=== PATIENT | male | born 1970 | race Caucasian/White ===

== ENCOUNTER 2019-04-02 16:40 | Emergency (ER) | payer MEDICAID, OTHER ==
[~2019-04-02 16:40] MED LIST: HYDR-4353 PO; IBUP-1984 PO
== END 2019-04-02 18:59 | disposition left against medical advice (07) ==
LOC: ER 16:41
DX: R22.40 Localized swelling, mass and lump, unspecified lower limb (principal); Z53.21 Procedure and treatment not carried out due to patient leaving prior to being seen by health care provider

== ENCOUNTER 2019-05-28 03:43 | Emergency (ER) | payer MEDICAID ==
[~2019-05-28] VITALS: Ht 177.8 cm; Wt 80.0 kg
[2019-05-28 03:46] VITALS: BP 160/102
[2019-05-28] MEDS ORDERED: acetaminophen 325mg tablet PO ONE (04:05)
== END 2019-05-28 04:22 | disposition home or self-care (01) ==
LOC: ER 03:44
DX: S29.011A Strain of muscle and tendon of front wall of thorax, initial encounter (principal); F15.90 Other stimulant use, unspecified, uncomplicated; M79.604 Pain in right leg; Z79.899 Other long term (current) drug therapy; Z59.0 Homelessness; Z56.0 Unemployment, unspecified; W18.39XA Other fall on same level, initial encounter; Y93.89 Activity, other specified; Y92.89 Other specified places as the place of occurrence of the external cause; Y99.8 Other external cause status
CPT/HCPCS: 99282

== ENCOUNTER 2019-10-23 02:41 | Emergency (ER) | payer MEDICAID ==
[~2019-10-23] VITALS: Ht 177.8 cm; Wt 86.3 kg
[2019-10-23] MEDS ORDERED: ibuprofen 200mg tablet PO ONE (03:05)
[2019-10-23 03:17] VITALS: BP 152/98
== END 2019-10-23 03:20 | disposition home or self-care (01) ==
LOC: ER 02:42
DX: M25.551 Pain in right hip (principal); Z60.2 Problems related to living alone; Z59.0 Homelessness; Z56.0 Unemployment, unspecified; Z79.899 Other long term (current) drug therapy
CPT/HCPCS: 99282

== ENCOUNTER 2019-12-04 10:06 | Emergency (ER) | payer MEDICAID ==
[~2019-12-04] VITALS: Ht 177.8 cm; Wt 90.0 kg
[2019-12-04] MEDS ORDERED: ketorolac trometh. 30mg/ml inj. IM ONE (11:35)
[2019-12-04] MEDS ORDERED: oxyCODONE/APAP 5-325mg tablet PO ONE (11:35)
[2019-12-04] MEDS ORDERED: HYDR-3965 PO (12:12)
[2019-12-04 12:43] VITALS: BP 108/70
== END 2019-12-04 12:46 | disposition home or self-care (01) ==
LOC: ER 10:07
DX: S82.831A Other fracture of upper and lower end of right fibula, initial encounter for closed fracture (principal); Z79.899 Other long term (current) drug therapy; Z60.2 Problems related to living alone; Z59.0 Homelessness; Z56.0 Unemployment, unspecified; X50.1XXA Overexertion from prolonged static or awkward postures, initial encounter; Y93.01 Activity, walking, marching and hiking; Y92.89 Other specified places as the place of occurrence of the external cause; Y99.8 Other external cause status
CPT/HCPCS: 29515; 73590; 73610; 73630; 96372; 99284; J1885

== ENCOUNTER 2019-12-15 16:37 | Emergency (ER) | payer MEDICAID ==
[~2019-12-15] VITALS: Ht 177.8 cm; Wt 88.6 kg
[2019-12-15 17:15] VITALS: BP 137/91
== END 2019-12-15 18:52 | disposition left against medical advice (07) ==
LOC: ER 16:38
DX: M54.5 Low back pain (principal); Z53.21 Procedure and treatment not carried out due to patient leaving prior to being seen by health care provider

== ENCOUNTER 2020-02-05 10:30 | Emergency (ER) | payer MEDICAID ==
[~2020-02-05] VITALS: Ht 182.9 cm; Wt 88.2 kg
[2020-02-05 10:37] VITALS: BP 139/85
[2020-02-05] MEDS ORDERED: ibuprofen tablet 400 MG TABLET PO ONE (10:45)
[2020-02-05] MEDS ORDERED: IBUP-1984 PO (11:18)
[2020-02-05] MEDS ORDERED: FEXO1TAB5 PO (11:18)
[2020-02-05] MEDS ORDERED: AMOX-422 PO (11:18)
== END 2020-02-05 11:41 | disposition home or self-care (01) ==
LOC: ER 10:30
DX: M25.571 Pain in right ankle and joints of right foot (principal); J32.9 Chronic sinusitis, unspecified; F17.200 Nicotine dependence, unspecified, uncomplicated; Z60.2 Problems related to living alone; Z59.0 Homelessness; Z56.0 Unemployment, unspecified; Z79.899 Other long term (current) drug therapy
CPT/HCPCS: 73610; 99283

== ENCOUNTER 2020-03-03 22:49 | Emergency (ER) | payer MEDICAID ==
[~2020-03-03] VITALS: Ht 177.8 cm; Wt 190.0 kg
[~2020-03-03 22:49] MED LIST changes: +FEXO1TAB5 PO
[2020-03-03] MEDS ORDERED: gabapentin 400mg capsule PO STA (22:54)
[2020-03-03] MEDS ORDERED: ketorolac trometh inj. 60 MG/2 ML VIAL IM ONE (22:55)
[2020-03-03] MEDS ORDERED: acetaminophen 325mg tablet PO ONE (23:20)
[2020-03-03] MEDS ORDERED: HYDROcodone/acetaminophen 10/325mg tab PO ONE (23:50)
[2020-03-04 00:39] VITALS: BP 117/66
--- NOTE | 2020-03-04 01:07 | NUR ---
PT WAS PROVIDED CRUTCHES TO ASSIST AMBULATION.
== END 2020-03-04 01:14 | disposition home or self-care (01) ==
LOC: ER 22:49
DX: M79.671 Pain in right foot (principal); G62.9 Polyneuropathy, unspecified; F17.200 Nicotine dependence, unspecified, uncomplicated; F15.90 Other stimulant use, unspecified, uncomplicated; Z60.2 Problems related to living alone; Z59.0 Homelessness; Z56.0 Unemployment, unspecified; Z79.899 Other long term (current) drug therapy
CPT/HCPCS: 99284

== ENCOUNTER 2020-05-06 11:14 | Emergency (ER) | payer MEDICAID ==
[~2020-05-06] VITALS: Ht 177.8 cm; Wt 72.0 kg
[2020-05-06] MEDS ORDERED: CEPH500C5 PO (12:34)
[2020-05-06] MEDS ORDERED: LACT1CAP60 PO (12:34)
[2020-05-06] MEDS ORDERED: SULF1TAB49 PO (12:34)
[2020-05-06 12:55] LABS: BASOPHILS # (AUTO) 0.1 X10'3 (0-0.2); BASOPHILS % (AUTO) 0.6 % (0-1); EOSINOPHILS # (AUTO) 0.2 X10'3 (0-0.9); HEMATOCRIT 37.8 % (42.0-52.0); HEMOGLOBIN 12.5 g/dl (14.0-17.9); LYMPHOCYTES # (AUTO) 2.7 X10'3 (1.1-4.8); LYMPHOCYTES % (AUTO) 28.4 % (21-51); MEAN CORPUSCULAR HEMOGLOBIN 28.6 PG (27.0-31.0); MEAN CORPUSCULAR VOLUME 86.7 FL (78-98); MEAN PLATELET VOLUME 8.2 FL (7.4-10.4); MONOCYTES # (AUTO) 0.7 X10'3 (0-0.9); NEUTROPHILS # (AUTO) 5.7 X10'3 (1.8-7.7); PLATELET COUNT 258 X10'3 (140-440); RED BLOOD COUNT 4.36 X10'6 (4.70-6.10); RED CELL DISTRIBUTION WIDTH 13.2 % (11.5-14.5); WHITE BLOOD COUNT 9.4 X10'3 (4.5-11.0)
[2020-05-06 13:05] LABS: ALANINE AMINOTRANSFERASE 29 U/L (12-78); ALBUMIN 2.9 G/DL (3.4-5.0); ALBUMIN/GLOBULIN RATIO 0.8 (1.1-1.5); ALKALINE PHOSPHATASE 106 IU/L (46-116); ANION GAP 5 (8-16); ASPARTATE AMINO TRANSFERASE 26 U/L (10-37); BILIRUBIN,TOTAL 0.1 MG/DL (0.1-1.0); BLOOD UREA NITROGEN 10 MG/DL (7-18); BUN/CREATININE RATIO 8.7 (5.4-32.0); CALCIUM 8.5 MG/DL (8.5-10.1); CHLORIDE 103 MMOL/L (99-107); CREATININE 1.15 MG/DL (0.60-1.10); ETHANOL < 0.010 GM/DL (0.0-0.010); GLUCOSE 90 MG/DL (70-104); POTASSIUM 3.4 MMOL/L (3.5-5.1); SODIUM 139 MMOL/L (135-145); TOTAL CARBON DIOXIDE 31.2 MMOL/L (24-32); TOTAL PROTEIN 6.4 G/DL (6.4-8.2); eGFR 68 ML/MIN
--- NOTE | 2020-05-06 13:28 | NUR ---
pt states "I just pee'd, I don't have anymore." He is refusing to be straight catheterized @ this time. CLAY Rankin notified.
--- NOTE | 2020-05-06 13:43 | NUR ---
Pt gave verbal permission to update friend Radha Jimenez ([phone]) on his status. Radha's information mirrored what pt had already shared with the exception that she was helping pt seek rehab for meth abuse.
[2020-05-06] MEDS ORDERED: LORazepam 2 mg/ml vial IV ONE (13:45)
[2020-05-06] MEDS ORDERED: ketorolac trometh. 30mg/ml inj. IV ONE (13:45)
[2020-05-06] MEDS ORDERED: normal saline 1000ML IV soln IVB ONE (13:45)
[2020-05-06] MEDS ORDERED: CefTRIAXone/D5W-Rocephin 1gm 50 ML IV ONE (13:50)
--- NOTE | 2020-05-06 14:15 | NUR ---
pt iv unable to flush, pt stated he clotts very fast. attempted one additional iv start. pt screamed and pulled arm upon insertion of iv. asked if he can have another ultrasound iv.
[2020-05-06 15:29] VITALS: BP 138/83
== END 2020-05-06 15:30 | disposition home or self-care (01) ==
LOC: ER 11:15
DX: S06.9X9A Unspecified intracranial injury with loss of consciousness of unspecified duration, initial encounter (principal); L02.416 Cutaneous abscess of left lower limb; L02.413 Cutaneous abscess of right upper limb; H11.31 Conjunctival hemorrhage, right eye; R51 Headache; M54.5 Low back pain; H53.8 Other visual disturbances; W51.XXXA Accidental striking against or bumped into by another person, initial encounter; Y93.89 Activity, other specified; Y92.89 Other specified places as the place of occurrence of the external cause; Y99.8 Other external cause status
CPT/HCPCS: 36415; 70450; 70486; 80053; 80320; 83605; 84145; 85025; 96365; 96375; 99285; J0696; J1885; J2060; J7030

== ENCOUNTER 2020-06-12 13:11 | Emergency (ER) | payer MEDICAID ==
[~2020-06-12] VITALS: Ht 177.8 cm; Wt 99.5 kg
[~2020-06-12 13:11] MED LIST changes: +LACT1CAP60 PO
[2020-06-12 13:19] VITALS: BP 134/83
[2020-06-12] MEDS ORDERED: AMOX-422 PO (13:45)
[2020-06-12] MEDS ORDERED: METR-159 PO (13:45)
[2020-06-12] MEDS ORDERED: LACT1CAP60 PO (13:48)
[2020-06-12] MEDS ORDERED: HYDROcodone/acetaminophen 5mg/325mg tablet PO ONE (13:55)
== END 2020-06-12 13:59 | disposition home or self-care (01) ==
LOC: ER 13:12
DX: K02.9 Dental caries, unspecified (principal); K08.89 Other specified disorders of teeth and supporting structures; R51 Headache; R22.0 Localized swelling, mass and lump, head; F15.90 Other stimulant use, unspecified, uncomplicated; Z60.2 Problems related to living alone; Z56.0 Unemployment, unspecified; Z59.0 Homelessness; Z79.2 Long term (current) use of antibiotics; Z79.899 Other long term (current) drug therapy
CPT/HCPCS: 99283

== ENCOUNTER 2020-08-15 09:25 | Emergency (ER) | payer MEDICAID ==
[~2020-08-15] VITALS: Ht 177.8 cm; Wt 113.6 kg
[2020-08-15 09:42] VITALS: BP 138/91
[2020-08-15] MEDS ORDERED: AZIT250T83 PO (10:29)
[2020-08-15] MEDS ORDERED: ALBU8.5H8 INH (10:29)
[2020-08-15] MEDS ORDERED: FLUT16SP2 BOTHNARES (10:29)
[2020-08-15] MEDS ORDERED: PRED20TA PO (10:29)
[2020-08-15] MEDS ORDERED: BENZ-16 PO (10:29)
== END 2020-08-15 11:00 | disposition home or self-care (01) ==
LOC: ER 09:25
DX: J20.9 Acute bronchitis, unspecified (principal); G62.9 Polyneuropathy, unspecified; F17.210 Nicotine dependence, cigarettes, uncomplicated; F15.10 Other stimulant abuse, uncomplicated; Z79.899 Other long term (current) drug therapy; Z87.311 Personal history of (healed) other pathological fracture; Z56.0 Unemployment, unspecified; Z59.0 Homelessness
CPT/HCPCS: 36415; 71045; 87635; 99284

== ENCOUNTER 2020-09-12 00:19 | Emergency (ER) | payer MEDICAID ==
[~2020-09-12] VITALS: Ht 177.8 cm; Wt 109.1 kg
[~2020-09-12 00:19] MED LIST changes: +ALBU8.5H8 INH; +BENZ-16 PO; +FLUT16SP2 BOTHNARES; +PRED20TA PO
[2020-09-12 00:22] VITALS: BP 123/78
[2020-09-12] MEDS ORDERED: normal saline 1000ML IV soln IVB ONE (00:30)
[2020-09-12 01:10] LABS: URINE AMPHETAMINE SCREEN NEGATIVE (Neg); URINE BARBITUATE SCREEN NEGATIVE (Neg); URINE BENZODIAZEPINES SCREEN NEGATIVE (Neg); URINE CANNABINOID SCREEN NEGATIVE (Neg); URINE COCAINE SCREEN NEGATIVE (Neg); URINE METHADONE SCREEN NEGATIVE (Neg); URINE OPIATE SCREEN NEGATIVE (Neg); URINE PHENCYCLIDINE SCREEN NEGATIVE (Neg)
== END 2020-09-12 01:18 | disposition home or self-care (01) ==
LOC: ER 00:19
DX: F10.920 Alcohol use, unspecified with intoxication, uncomplicated (principal); Y90.9 Presence of alcohol in blood, level not specified; J20.9 Acute bronchitis, unspecified; Z59.0 Homelessness; Z56.0 Unemployment, unspecified; Z79.899 Other long term (current) drug therapy
CPT/HCPCS: 36415; 80305; 93005; 99284

== ENCOUNTER 2020-09-23 18:48 | Emergency (ER) | payer MEDICAID ==
[~2020-09-23] VITALS: Ht 177.8 cm; Wt 108.4 kg
[~2020-09-23 18:48] MED LIST changes: -BENZ-16 PO; -PRED20TA PO
[2020-09-23 19:57] LABS: BASOPHILS # (AUTO) 0.1 X10'3 (0-0.2); BASOPHILS % (AUTO) 1.1 % (0-1); EOSINOPHILS # (AUTO) 0.3 X10'3 (0-0.9); EOSINOPHILS % (AUTO) 2.9 % (0-6); HEMATOCRIT 46.2 % (42.0-52.0); HEMOGLOBIN 15.7 g/dl (14.0-17.9); LYMPHOCYTES # (AUTO) 2.5 X10'3 (1.1-4.8); LYMPHOCYTES % (AUTO) 28.1 % (21-51); MEAN CORPUSCULAR HEMOGLOBIN 30.2 PG (27.0-31.0); MEAN PLATELET VOLUME 8.3 FL (7.4-10.4); NEUTROPHILS # (AUTO) 5.2 X10'3 (1.8-7.7); NEUTROPHILS % (AUTO) 56.9 % (42-75); PLATELET COUNT 196 X10'3 (140-440); RED CELL DISTRIBUTION WIDTH 13.8 % (11.5-14.5); WHITE BLOOD COUNT 9.1 X10'3 (4.5-11.0)
[2020-09-23 20:14] LABS: ALANINE AMINOTRANSFERASE 66 U/L (12-78); ALBUMIN 3.7 G/DL (3.4-5.0); ALBUMIN/GLOBULIN RATIO 0.9 (1.1-1.5); ALKALINE PHOSPHATASE 94 IU/L (46-116); ANION GAP 11 (8-16); ASPARTATE AMINO TRANSFERASE 36 U/L (10-37); BILIRUBIN,TOTAL 0.3 MG/DL (0.1-1.0); BLOOD UREA NITROGEN 10 MG/DL (7-18); CALCIUM 9.9 MG/DL (8.5-10.1); CHLORIDE 103 MMOL/L (99-107); CREATININE 1.11 MG/DL (0.60-1.10); GLUCOSE 101 MG/DL (70-104); LIPASE < 50 U/L (73-393); POTASSIUM 4.1 MMOL/L (3.5-5.1); SODIUM 140 MMOL/L (135-145); TOTAL CARBON DIOXIDE 26.4 MMOL/L (24-32); eGFR 71 ML/MIN
[2020-09-23 21:11] LABS: CLARITY,URINE CLEAR (Clear); COLOR,URINE YELLOW (Yellow); GLUCOSE, URINE NEGATIVE (Neg); KETONES,URINE NEGATIVE (Neg); LEUKOCYTE ESTERASE ,URINE SMALL (Neg); NITRITES, URINE NEGATIVE (Neg); OCCULT BLOOD,URINE MODERATE (Neg); PH,URINE 5.5 (4.8-8.0); PROTEIN,URINE NEGATIVE (Neg); UA COLLECTION TYPE CLN CATCH MIDSTREAM; UROBILINOGEN,URINE 0.2 E.U/dL (0.2-1.0)
[2020-09-23 21:18] LABS: SQUAMOUS EPITHELIAL CELL,UR FEW /LPF (FEW)
[2020-09-23 21:19] LABS: BACTERIA,URINE 1+ /HPF (Neg); RBC,URINE 50-100 /HPF (0-2); TRANSITIONAL EPI CELLS,URINE FEW /HPF
[2020-09-23] MEDS ORDERED: HYDROcodone/acetaminophen 5mg/325mg tablet PO ONE (21:20)
[2020-09-23 23:03] VITALS: BP 126/50
[2020-09-23] MEDS ORDERED: HYDR-4353 PO (23:19)
--- NOTE | 2020-09-24 10:59 | NUR ---
I CALLED PT PT IS REFUSING RX OF [employer].
== END 2020-09-23 23:29 | disposition home or self-care (01) ==
LOC: ER 18:49
DX: N20.0 Calculus of kidney (principal); N13.30 Unspecified hydronephrosis; G62.9 Polyneuropathy, unspecified; J40 Bronchitis, not specified as acute or chronic; Z56.0 Unemployment, unspecified; Z59.0 Homelessness; Z79.899 Other long term (current) drug therapy
CPT/HCPCS: 36415; 74176; 80053; 81001; 83690; 85025; 87088; 99284

== ENCOUNTER 2020-09-29 07:49 | Emergency (ER) | payer MEDICAID ==
[~2020-09-29] VITALS: Ht 177.8 cm; Wt 109.1 kg
[2020-09-29] MEDS ORDERED: NAPR-56 PO (08:38)
== END 2020-09-29 08:54 | disposition home or self-care (01) ==
LOC: ER 07:49
DX: R05 Cough (principal); Z20.828 Contact with and (suspected) exposure to other viral communicable diseases; Z60.2 Problems related to living alone; Z56.0 Unemployment, unspecified; Z59.0 Homelessness; Z79.899 Other long term (current) drug therapy
CPT/HCPCS: 36415; 87635; 99283

== ENCOUNTER 2020-10-14 10:24 | Emergency (ER) | payer MEDICAID ==
[~2020-10-14] VITALS: Ht 177.8 cm; Wt 106.8 kg
[~2020-10-14 10:24] MED LIST changes: +NAPR-56 PO
[2020-10-14 10:38] VITALS: BP 156/90
[2020-10-14] MEDS ORDERED: PENI250T2 PO (11:13)
[2020-10-14] MEDS ORDERED: GUAI600T45 PO (11:13)
== END 2020-10-14 11:22 | disposition home or self-care (01) ==
LOC: ER 10:25
DX: K04.7 Periapical abscess without sinus (principal); R09.89 Other specified symptoms and signs involving the circulatory and respiratory systems; Z60.2 Problems related to living alone; Z59.0 Homelessness; Z56.0 Unemployment, unspecified; Z79.2 Long term (current) use of antibiotics; Z79.899 Other long term (current) drug therapy
CPT/HCPCS: 99283

== ENCOUNTER 2020-10-23 13:15 | Emergency (ER) | payer MEDICAID ==
[~2020-10-23 13:15] MED LIST changes: +GUAI600T45 PO; +PENI250T2 PO
== END 2020-10-23 14:59 | disposition left against medical advice (07) ==
LOC: ER 13:16
DX: M54.2 Cervicalgia (principal); Z53.21 Procedure and treatment not carried out due to patient leaving prior to being seen by health care provider

== ENCOUNTER 2020-11-15 15:42 | Emergency (ER) | payer MEDICAID ==
[~2020-11-15] VITALS: Ht 177.8 cm; Wt 109.1 kg
[~2020-11-15 15:42] MED LIST changes: -PENI250T2 PO
[2020-11-15 15:49] VITALS: BP 158/86
[2020-11-15] MEDS ORDERED: amoxicillin 250mg capsule PO ONE (16:10)
[2020-11-15] MEDS ORDERED: naproxen 500mg tablet PO ONE (16:10)
[2020-11-15] MEDS ORDERED: AMOX500C2 PO (16:12)
[2020-11-15] MEDS ORDERED: NAPR-56 PO (16:12)
== END 2020-11-15 16:46 | disposition home or self-care (01) ==
LOC: ER 15:42
DX: K04.7 Periapical abscess without sinus (principal); G62.9 Polyneuropathy, unspecified; Z87.81 Personal history of (healed) traumatic fracture; Z56.0 Unemployment, unspecified; Z59.0 Homelessness; Z79.2 Long term (current) use of antibiotics; Z79.899 Other long term (current) drug therapy
CPT/HCPCS: 99283

== ENCOUNTER 2021-06-11 21:00 | Inpatient (IN) | payer MEDICAID ==
[~2021-06-11] VITALS: Ht 172.7 cm; Wt 125.0 kg
[~2021-06-11 21:00] MED LIST changes: +ALBU8.5H17 INH; -ALBU8.5H8 INH
[2021-06-11] MEDS ORDERED: LORazepam 2 mg/ml vial IM ONE (21:25)
[2021-06-11] MEDS ORDERED: diphenhydrAMINE 50 mg/ml inj IM ONE (21:25)
--- NOTE | 2021-06-11 22:04 | NUR ---
The patient is a 50 year old male who was brought in by D after he was at someones home and was confused and disorganized. When the officer interviewed him he was discribed as "catatonic" He was unable to identify a plan for food, prison or clothing. He presented as very disorganized and unable to follow simple commands. He was confused and unable to give a medical history, med history or complete the [place] Suicide Scale. His mouth was very dry and was asking for water but then spit it out. His replies are not mumbled and at times do not match what was asked.
[2021-06-11] MEDS ORDERED: normal saline 1000ml 1,000 ML IV ONE (22:50)
[2021-06-11 23:07] LABS: BASOPHILS # (AUTO) 0.1 X10'3 (0-0.2); BASOPHILS % (AUTO) 0.3 % (0-1); EOSINOPHILS % (AUTO) 0 % (0-6); HEMOGLOBIN 16.6 g/dl (14.0-17.9); LYMPHOCYTES # (AUTO) 1.1 X10'3 (1.1-4.8); MEAN CORPUSCULAR HEMOGLOBIN 29.3 PG (27.0-31.0); MEAN CORPUSCULAR HGB CONC 33.2 g/dL (33.0-36.5); MEAN CORPUSCULAR VOLUME 88.2 FL (78-98); MEAN PLATELET VOLUME 8.7 FL (7.4-10.4); MONOCYTES # (AUTO) 1.3 X10'3 (0-0.9); MONOCYTES % (AUTO) 6.8 % (2-12); NEUTROPHILS # (AUTO) 16.2 X10'3 (1.8-7.7); NEUTROPHILS % (AUTO) 86.9 % (42-75); PLATELET COUNT 295 X10'3 (140-440); RED BLOOD COUNT 5.67 X10'6 (4.70-6.10); RED CELL DISTRIBUTION WIDTH 13.9 % (11.5-14.5); WHITE BLOOD COUNT 18.7 X10'3 (4.5-11.0)
--- NOTE | 2021-06-11 23:16 | NUR ---
The patient appears very confused. He is asking for water but then spitting it out. His mouth appears very dry. PA made aware of apparent delirium type symptoms. Orders received.
[2021-06-11 23:23] LABS: ALANINE AMINOTRANSFERASE 115 U/L (12-78); ALBUMIN 4.5 G/DL (3.4-5.0); ALKALINE PHOSPHATASE 115 IU/L (46-116); ANION GAP 17 (8-16); ASPARTATE AMINO TRANSFERASE 70 U/L (10-37); BILIRUBIN,TOTAL 0.7 MG/DL (0.1-1.0); BLOOD UREA NITROGEN 28 MG/DL (7-18); CALCIUM 9.9 MG/DL (8.5-10.1); CHLORIDE 114 MMOL/L (99-107); CREATININE 2.34 MG/DL (0.60-1.10); GLUCOSE 139 MG/DL (70-104); POTASSIUM 3.8 MMOL/L (3.5-5.1); TOTAL CARBON DIOXIDE 24.4 MMOL/L (24-32); TOTAL PROTEIN 9.1 G/DL (6.4-8.2); eGFR 30 ML/MIN
[2021-06-11 23:33] LABS: ETHANOL < 0.010 GM/DL (0.0-0.010)
[2021-06-11 23:39] LABS: SODIUM 155 MMOL/L (135-145)
--- NOTE | 2021-06-11 23:40 | NUR ---
Critical lab values of NA 155 and CL of 114 reported to Daylin WILLIAMSON
[2021-06-12] MEDS ORDERED: BUS15T PO (00:36)
[2021-06-12] MEDS ORDERED: MIRT-116 PO (00:36)
[2021-06-12] MEDS ORDERED: BUPR300T53 PO (00:36)
[2021-06-12] MEDS ORDERED: potassium Cl 20 mEq SR tablet PO PRN ×2 (01:55)
[2021-06-12] MEDS ORDERED: magnesium Cl slow-release 64mg tablet PO PRN (01:55)
[2021-06-12] MEDS ORDERED: magnesium 4gm in 100ml NS 100 ML IV PRN (01:55)
[2021-06-12] MEDS ORDERED: acetaminophen 325mg tablet PO PRN ×2 (01:55)
[2021-06-12] MEDS ORDERED: magnesium 2GM in 50ml NS 50 ML IV PRN (01:55)
[2021-06-12] MEDS ORDERED: ondansetron/PF 4mg/2ml inj IV PRN (01:55)
[2021-06-12] MEDS ORDERED: potassium Cl 40MEQ/1/2NS 520ml 520 ML IV PRN ×2 (01:55)
[2021-06-12] MEDS ORDERED: vancomycin/NS 1 GM ADD-VANTAGE 250 ML IV SCH (02:30)
[2021-06-12] MEDS: dextrose 5%-1/2 normal saline 1,000 ML IV SCH ×4 (02:43→20:55)
--- NOTE | 2021-06-12 02:47 | NUR ---
The patient pulled out his IV that was in his right upper arm that was obtained by [facility]. New PIV in his left upper arm. The patient is going to be admitted per Dr. Hernandez. IV fluids started. He remains confused. He has one to one staffing 2nd to his confused state.
--- NOTE | 2021-06-12 03:28 | NUR ---
The patient appears to be sleeping
--- NOTE | 2021-06-12 05:03 | NUR ---
The patient appears to be sleeping at this time.
[2021-06-12 06:15] LABS: CLARITY,URINE SLIGHTLY CLOUDY (Clear); COLOR,URINE YELLOW (Yellow); GLUCOSE, URINE NEGATIVE (Neg); KETONES,URINE TRACE mg/dl (Neg); LEUKOCYTE ESTERASE ,URINE TRACE (Neg); NITRITES, URINE NEGATIVE (Neg); OCCULT BLOOD,URINE SMALL (Neg); PROTEIN,URINE TRACE mg/dl (Neg)
[2021-06-12 06:22] LABS: UA COLLECTION TYPE VOIDED
[2021-06-12 06:26] LABS: MUCUS STRANDS FEW /LPF (Neg); SQUAMOUS EPITHELIAL CELL,UR FEW /LPF (FEW); URINE AMPHETAMINE SCREEN POSITIVE (Neg); URINE BARBITUATE SCREEN NEGATIVE (Neg); URINE BENZODIAZEPINES SCREEN NEGATIVE (Neg); URINE CANNABINOID SCREEN NEGATIVE (Neg); URINE COCAINE SCREEN NEGATIVE (Neg); URINE METHADONE SCREEN NEGATIVE (Neg); URINE OPIATE SCREEN NEGATIVE (Neg); URINE PHENCYCLIDINE SCREEN NEGATIVE (Neg)
[2021-06-12 06:28] LABS: BACTERIA,URINE FEW /HPF (Neg); CAL OXALATE CRYSTALS 1+ /HPF (NEGATIVE); RBC,URINE 20-50 /HPF (0-2)
[2021-06-12 06:29] LABS: RENAL CELLS, URINE FEW /HPF
[2021-06-12 06:30] LABS: HYALINE CASTS 0-3 /LPF (NEGATIVE)
[2021-06-12] MEDS: CefTRIAXone 2gm/D5W 50ml BAG 50 ML IV SCH (08:17)
[2021-06-12] MEDS: heparin, porcine 5000 units/ml vial SQ SCH ×2 (08:36→20:55)
--- NOTE | 2021-06-12 08:45 | NUR ---
Pt woke and used bathroom. Pt moved to bed 24 in ER overflow. Pt received AM meds and remains sleeping in bed with IV of D5 1/2 NS @ 150ml/hr.
[2021-06-12] MEDS: K and/or MAG REPLACEMENT MC SCH ×2 (08:55→20:00)
--- NOTE | 2021-06-12 10:00 | NUR ---
Received Pt in bed sleeping w/o distress. Pt has IV intact and running.
[2021-06-12] MEDS ORDERED: LORazepam 2 mg/ml vial IV PRN (13:00)
--- NOTE | 2021-06-12 13:30 | NUR ---
Pt was up to bathroom earlier and urinated. Pt returned to bed and drank some water then fell asleep. New bag 1000ml of D5, 1/2 NS started.
[2021-06-12] MEDS: vancomycin/NS 1 GM ADD-VANTAGE 250 ML IV SCH (15:11)
--- NOTE | 2021-06-12 17:22 | NUR ---
Pt in bed sleeping in no distress. IV Vanco administered and D5 1/2 NS running at 150 ml/hr. Pt woke earlier and drank water.
--- NOTE | 2021-06-12 20:00 | NUR ---
The patient appears to be sleeping. He did awaken briefly and requested assistance with using the bathroom.
[2021-06-12] MEDS: mirtazapine 15mg tablet PO SCH (20:55)
[2021-06-12] MEDS: busPIRone 15mg tablet PO SCH (20:55)
--- NOTE | 2021-06-12 21:51 | NUR ---
The patient has continued to sleep. He was awakened for HS medications and asked how he got to be in the hospital and the circumstances of why he was here was relayed to him.
--- NOTE | 2021-06-12 23:30 | NUR ---
Request made to cupola charger insulation to move patient to medical side of ER for monitoring
--- NOTE | 2021-06-12 23:32 | NUR ---
The patient appears to be sleeping
--- NOTE | 2021-06-13 01:06 | NUR ---
The patient appears to be sleeping
[2021-06-13] MEDS: dextrose 5%-1/2 normal saline 1,000 ML IV SCH (02:31)
[2021-06-13] MEDS: vancomycin/NS 1 GM ADD-VANTAGE 250 ML IV SCH (02:31)
--- NOTE | 2021-06-13 03:01 | NUR ---
The patient awakened for labs. He is still confused and forgetful as to how he came to be in the ER. But his throught process is much clearer and he now can answer simple questions appropriately. He is sleeping well between nursing interventions.
[2021-06-13 03:34] LABS: ALANINE AMINOTRANSFERASE 100 U/L (12-78); ALBUMIN 2.9 G/DL (3.4-5.0); ALBUMIN/GLOBULIN RATIO 0.9 (1.1-1.5); ALKALINE PHOSPHATASE 82 IU/L (46-116); ANION GAP 11 (8-16); ASPARTATE AMINO TRANSFERASE 111 U/L (10-37); BILIRUBIN,TOTAL 0.8 MG/DL (0.1-1.0); BLOOD UREA NITROGEN 15 MG/DL (7-18); BUN/CREATININE RATIO 12.6 (5.4-32.0); CALCIUM 7.2 MG/DL (8.5-10.1); CHLORIDE 110 MMOL/L (99-107); CREATININE 1.19 MG/DL (0.60-1.10); GLUCOSE 100 MG/DL (70-104); MAGNESIUM 2.4 MG/DL (1.5-2.4); POTASSIUM 3.9 MMOL/L (3.5-5.1); SODIUM 146 MMOL/L (135-145); TOTAL CARBON DIOXIDE 25.3 MMOL/L (24-32); TOTAL PROTEIN 6.2 G/DL (6.4-8.2); eGFR 65 ML/MIN
--- NOTE | 2021-06-13 04:40 | NUR ---
The patient appears to be sleeping
[2021-06-13 04:49] LABS: BASOPHILS # (AUTO) 0.1 X10'3 (0-0.2); BASOPHILS % (AUTO) 0.6 % (0-1); EOSINOPHILS # (AUTO) 0.2 X10'3 (0-0.9); EOSINOPHILS % (AUTO) 1.4 % (0-6); HEMATOCRIT 38.8 % (42.0-52.0); HEMOGLOBIN 12.7 g/dl (14.0-17.9); LYMPHOCYTES # (AUTO) 3.2 X10'3 (1.1-4.8); LYMPHOCYTES % (AUTO) 29.2 % (21-51); MEAN CORPUSCULAR HEMOGLOBIN 29.6 PG (27.0-31.0); MEAN CORPUSCULAR HGB CONC 32.8 g/dL (33.0-36.5); MEAN CORPUSCULAR VOLUME 90.3 FL (78-98); NEUTROPHILS # (AUTO) 6.6 X10'3 (1.8-7.7); NEUTROPHILS % (AUTO) 59.8 % (42-75); PLATELET COUNT 160 X10'3 (140-440); RED CELL DISTRIBUTION WIDTH 14.1 % (11.5-14.5)
--- NOTE | 2021-06-13 05:32 | NUR ---
The patient is requesting food items. Dr. Hernandez notified and orders received.
--- NOTE | 2021-06-13 06:41 | NUR ---
Patient laying on rifght side. No distress observed. 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 HR, 54. 02 sat.94%. RR 14. Continue to monitor.
--- NOTE | 2021-06-13 08:00 | NUR ---
Patient eating breakfast. No distress observed. Continue to monitor.
[2021-06-13] MEDS: busPIRone 15mg tablet PO SCH ×2 (08:29→20:46)
[2021-06-13] MEDS: heparin, porcine 5000 units/ml vial SQ SCH (08:30)
[2021-06-13] MEDS: buPROPion SR 150mg tablet PO SCH ×2 (08:30→20:45)
[2021-06-13] MEDS: CefTRIAXone 2gm/D5W 50ml BAG 50 ML IV SCH (08:34)
[2021-06-13] MEDS: K and/or MAG REPLACEMENT MC SCH ×2 (08:40→20:00)
--- NOTE | 2021-06-13 10:55 | NUR ---
Dr Nichols came in to see patient. Patient's admission to inpatient is cancelled. Patient is doing well. Continue to monitor. Per Dr Nichols, patient to be placed on PO antibiotics. Continue to monitor.
--- NOTE | 2021-06-13 12:30 | NUR ---
Patient ambulatory to BR, steady gait. No distress observed. Continue to monitor.
--- NOTE | 2021-06-13 13:10 | NUR ---
Patient eating lunch. No distress observed. Continue to monitor.
[2021-06-13] MEDS ORDERED: LEVO250T58 PO (13:43)
[2021-06-13] MEDS ORDERED: VANCOMYCIN LEVEL IV ONE (14:30)
--- NOTE | 2021-06-13 15:01 | NUR ---
Patient sleeping on right side. No distress observed. Continue to monitor.
--- NOTE | 2021-06-13 16:41 | NUR ---
Patient sleeping on left side. No distress observed. Continue to monitor.
--- NOTE | 2021-06-13 17:00 | NUR ---
Patient wants to know how he got the infection and wants to speak to a doctor. The E.R. is extremely busy and advised patient that there is probably not a doctor available any time soon to speak to him. Patient is awaiting eval from [facility]. Continue to monitor.
--- NOTE | 2021-06-13 17:45 | NUR ---
Patient sleeping supine. No distress observed. Continue to monitor.
--- NOTE | 2021-06-13 20:00 | NUR ---
One to one with the patient who has been up on the unit and pleasant, cooperative. He denies that he is having any psychotic symptoms. He denies thoughts to harm himself or others. He stated that his memory is poor since being in the hospital. He stated that he gets a monthly injection but currently cannot recall where he gets this. He is aware that [facility] will see him in the am.
[2021-06-13] MEDS: lactobacillus rhamnosus 10,000 MMU CELLS/CAPSULE PO SCH (20:45)
[2021-06-13] MEDS: mirtazapine 15mg tablet PO SCH (20:46)
--- NOTE | 2021-06-13 21:32 | NUR ---
The patient is resting quietly on his bed.
--- NOTE | 2021-06-13 22:44 | NUR ---
THe patient is up to use the bathroom
--- NOTE | 2021-06-14 00:55 | NUR ---
The patient appears to be sleeping
--- NOTE | 2021-06-14 02:46 | NUR ---
The patient appears to be sleeping
--- NOTE | 2021-06-14 04:10 | NUR ---
THe patient appears to be sleeping
[2021-06-14 05:55] VITALS: BP 108/64
--- NOTE | 2021-06-14 06:12 | NUR ---
THe patient appeared to have slept well during the night.
--- NOTE | 2021-06-14 07:13 | NUR ---
pt wake resting in bed quietly ,will cont to monitor.
[2021-06-14] MEDS: K and/or MAG REPLACEMENT MC SCH (08:00)
[2021-06-14] MEDS ORDERED: levoFLOXACIN 250mg tablet PO SCH (08:00)
--- NOTE | 2021-06-14 08:05 | NUR ---
pt is eating the breakfast .
[2021-06-14] MEDS: busPIRone 15mg tablet PO SCH (08:18)
[2021-06-14] MEDS: lactobacillus rhamnosus 10,000 MMU CELLS/CAPSULE PO SCH (08:19)
[2021-06-14] MEDS: buPROPion SR 150mg tablet PO SCH (08:32)
--- NOTE | 2021-06-14 08:34 | NUR ---
pt medicated with morning meds ,assess the pt with any c/o ,pt denies any discomfort or pain .pt ate 100 %breakfast and has taken his medication and explained the action.pt verbalized understanding asked what day ,month ,year and who is the president ?pt said he don't remember the day ,month -jun ,2020 and ximenaradha is president.
--- NOTE | 2021-06-14 08:34 | NUR ---
siria from [facility] eval at bedside .
--- NOTE | 2021-06-14 09:25 | NUR ---
sarmad from lab at bedside to draw blood from pt.pt is cooperative.
--- NOTE | 2021-06-14 09:45 | NUR ---
clarified with dr waite if he wants to repeat the lab today as pt is getting d/c and denies any concern or c/o .as per md no need for labs and he will d/c the pt .
--- NOTE | 2021-06-14 09:52 | NUR ---
pt belonging provided,pt dressed up ,iv removed ,will discuss the d/c instruction and taxi called by the rosalie polanco.
== END 2021-06-14 10:29 | disposition home or self-care (01) | DRG 422 ==
LOC: ER 21:01 → ED HOLD 06-12 01:56
PROVIDERS: ADMIT Internal Medicine; ATTEND Family Medicine
DX: E86.0 Dehydration (principal); N17.0 Acute kidney failure with tubular necrosis; E87.0 Hyperosmolality and hypernatremia; F20.9 Schizophrenia, unspecified; D72.829 Elevated white blood cell count, unspecified; Z20.822 Contact with and (suspected) exposure to COVID-19; G62.9 Polyneuropathy, unspecified; Z59.0 Homelessness; Z56.0 Unemployment, unspecified
CPT/HCPCS: 36415; 71045; 80053; 80305; 80320; 81001; 83605; 83735; 84145; 84443; 85025; 87040; 87088; 87635; 93005; 99285; C9803; G0378; J0696; J1200; J1644; J2060; J3370; J7030

== ENCOUNTER 2021-07-11 19:57 | Emergency (ER) | payer MEDICAID ==
[~2021-07-11] VITALS: Ht 177.8 cm; Wt 91.0 kg
[~2021-07-11 19:57] MED LIST changes: -ALBU8.5H17 INH; +BUPR300T53 PO; +BUS15T PO; -FEXO1TAB5 PO; -FLUT16SP2 BOTHNARES; -GUAI600T45 PO; -HYDR-4353 PO; -IBUP-1984 PO; -LACT1CAP60 PO; +LEVO250T58 PO; +MIRT-116 PO; -NAPR-56 PO
[2021-07-11 19:58] VITALS: BP 107/72
[2021-07-11] MEDS ORDERED: SULF1TAB45 PO (20:27)
[2021-07-11] MEDS ORDERED: CEPH250T PO (20:27)
[2021-07-11] MEDS ORDERED: IBUP-1984 PO (20:27)
== END 2021-07-11 20:48 | disposition home or self-care (01) ==
LOC: ER 19:57
DX: S60.861A Insect bite (nonvenomous) of right wrist, initial encounter (principal); L03.113 Cellulitis of right upper limb; F20.9 Schizophrenia, unspecified; Z60.2 Problems related to living alone; Z56.0 Unemployment, unspecified; Z59.0 Homelessness; Z79.2 Long term (current) use of antibiotics; Z79.899 Other long term (current) drug therapy; W57.XXXA Bitten or stung by nonvenomous insect and other nonvenomous arthropods, initial encounter; Y93.89 Activity, other specified; Y92.89 Other specified places as the place of occurrence of the external cause; Y99.8 Other external cause status
CPT/HCPCS: 99283

== ENCOUNTER 2022-04-19 05:22 | Emergency (ER) | payer MEDICAID ==
[~2022-04-19 05:22] MED LIST changes: -LEVO250T58 PO
== END 2022-04-19 06:16 | disposition left against medical advice (07) ==
LOC: ER 05:23
DX: Z00.8 Encounter for other general examination (principal)

== ENCOUNTER 2022-09-27 21:48 | Emergency (ER) | payer MEDICAID | END 2022-09-27 23:30 | disposition left against medical advice (07) | LOC: ER 21:49 | DX: M79.673 Pain in unspecified foot (principal); Z53.21 Procedure and treatment not carried out due to patient leaving prior to being seen by health care provider ==

== ENCOUNTER 2023-08-31 04:22 | Emergency (ER) | payer MEDICAID, OTHER ==
[~2023-08-31] VITALS: Ht 177.8 cm; Wt 86.4 kg
[~2023-08-31 04:22] MED LIST changes: -MIRT-116 PO; +MIRT-142 PO
[2023-08-31 04:55] VITALS: BP 132/86; PULSE 58; RESP 14; TEMP 97.7; O2SAT 99
[2023-08-31 08:47] LABS: BASOPHILS % (AUTO) 0.5 % (0-1); EOSINOPHILS # (AUTO) 0.1 X10'3 (0-0.9); EOSINOPHILS % (AUTO) 1.6 % (0-6); HEMATOCRIT 46.6 % (42.0-52.0); HEMOGLOBIN 15.9 g/dl (14.0-17.9); LYMPHOCYTES # (AUTO) 2.2 X10'3 (1.1-4.8); LYMPHOCYTES % (AUTO) 33.2 % (21-51); MEAN CORPUSCULAR HEMOGLOBIN 29.6 PG (27.0-31.0); MEAN CORPUSCULAR HGB CONC 34.1 g/dL (33.0-36.5); MEAN CORPUSCULAR VOLUME 86.9 FL (78-98); MEAN PLATELET VOLUME 9.9 FL (7.4-10.4); MONOCYTES # (AUTO) 0.5 X10'3 (0-0.9); MONOCYTES % (AUTO) 8.2 % (2-12); NEUTROPHILS # (AUTO) 3.7 X10'3 (1.8-7.7); NEUTROPHILS % (AUTO) 56.5 % (42-75); PLATELET COUNT 160 X10'3 (140-440); RED BLOOD COUNT 5.36 X10'6 (4.70-6.10); RED CELL DISTRIBUTION WIDTH 14.1 % (11.5-14.5); WHITE BLOOD COUNT 6.6 X10'3 (4.5-11.0)
[2023-08-31 09:06] LABS: ALANINE AMINOTRANSFERASE 93 U/L (12-78); ALBUMIN 3.9 G/DL (3.4-5.0); ALKALINE PHOSPHATASE 88 IU/L (46-116); ANION GAP 8 (8-16); ASPARTATE AMINO TRANSFERASE 48 U/L (10-37); BILIRUBIN,TOTAL 0.5 MG/DL (0.1-1.0); BLOOD UREA NITROGEN 20 MG/DL (7-18); BUN/CREATININE RATIO 18.3 (10.0-20.0); CALCIUM 9.6 MG/DL (8.5-10.1); CHLORIDE 102 MMOL/L (99-107); CREATININE 1.09 MG/DL (0.60-1.10); GLUCOSE 92 MG/DL (70-104); POTASSIUM 4.2 MMOL/L (3.5-5.1); SODIUM 138 MMOL/L (135-145); TOTAL CARBON DIOXIDE 28.2 MMOL/L (24-32); TOTAL PROTEIN 7.8 G/DL (6.4-8.2); eCRCL 84 ML/MIN; eGFR 72 ML/MIN
[2023-08-31 09:15] LABS: PRO BRAIN NATRIURETIC PEPTIDE < 30 PG/ML (0-125)
[2023-08-31] MEDS ORDERED: aspirin 325mg tablet PO ONE (09:30)
[2023-08-31] MEDS ORDERED: acetaminophen 325mg tablet PO PRN ×2 (12:55)
[2023-08-31] MEDS ORDERED: magnesium 2GM in 50ml NS 50 ML IV PRN (12:55)
[2023-08-31] MEDS ORDERED: potassium Cl 20 mEq SR tablet PO PRN ×2 (12:55)
[2023-08-31] MEDS ORDERED: normal saline 1000ml 1,000 ML IV SCH (12:55)
[2023-08-31] MEDS ORDERED: magnesium Cl slow-release 64mg tablet PO PRN (12:55)
[2023-08-31] MEDS ORDERED: ondansetron/PF 4mg/2ml inj IV PRN (12:55)
[2023-08-31] MEDS ORDERED: potassium Cl 40MEQ/1/2NS 520ml 520 ML IV PRN (12:55)
[2023-08-31] MEDS ORDERED: HYDROcodone/acetaminophen 5mg/325mg tablet PO PRN (12:55)
[2023-08-31] MEDS ORDERED: magnesium 4gm in 100ml NS 100 ML IV PRN (12:55)
[2023-08-31] MEDS ORDERED: morphine 2 MG/ML inj. syringe IV PRN ×2 (12:55)
[2023-08-31] MEDS ORDERED: HYDROcodone/acetaminophen 10/325mg tab PO PRN (12:55)
--- NOTE | 2023-08-31 14:27 | NUR ---
This [facility] underwriter was informed by another RN on the unit that the pt was requesting to leave AMA.
--- NOTE | 2023-08-31 14:37 | NUR ---
At bedside with pt to sign AMA paperwork, hospitalist was notified via pager of pt request to leave. pt unwilling to wait to hear back from hospitalist. Eloped from the unit. No IV was established. All belongings were taken by the patient.
[2023-08-31] MEDS ORDERED: enoxaparin 40mg/0.4ml syringe SQ SCH (20:00)
== END 2023-08-31 14:40 | disposition left against medical advice (07) ==
LOC: ER 04:22 → EEVIPCON 04:22 → UNDOADMIN 13:00 → ED HOLD 13:00 → UNDODISIN 14:20
DX: R07.89 Other chest pain (principal); Z59.00 Homelessness unspecified; F20.9 Schizophrenia, unspecified; F31.9 Bipolar disorder, unspecified; F41.9 Anxiety disorder, unspecified; G62.9 Polyneuropathy, unspecified; K21.9 Gastro-esophageal reflux disease without esophagitis; Z87.891 Personal history of nicotine dependence; Z56.0 Unemployment, unspecified
CPT/HCPCS: 36415; 71045; 80053; 83880; 84484; 85025; 93005; 93306; 99285; G0378